=== PATIENT | male | born 1990 | race Caucasian/White ===

== ENCOUNTER 2019-06-05 14:20 | Emergency (ER) | payer OTHER, SELFPAY ==
[2019-06-05 14:27] VITALS: BP 141/86; PULSE 88; RESP 14; TEMP 37.1; O2SAT 95
--- NOTE | 2019-06-05 14:34 | ED_ITS ---
HPI - Skin/Abscess/Foreign Bdy General Chief complaint: Skin/Abscess/Foreign Body Stated complaint: tailbone injury Time Seen by Provider: 06/05/19 14:24 Source: patient Mode of arrival: Ambulatory Limitations: no limitations History of Present Illness HPI narrative: Patient is a 29-year-old male with what he thinks is either an abscess or cyst on his lower back/upper buttocks. He states has been there for the past couple days. It is painful. He stated that he had something similar many years ago but it seemed to resolved on its own. He states that last night he was taking a shower and it seemed to start draining on its own. He described getting 1/4 to 1/2 cup of material out of the area. He did do some research on the Internet and was concerned about either an abscess or cyst. Related Data Home Medications Medication Instructions Recorded Confirmed buprenorphine-naloxone 1 tab SUBLINGUAL DAILY 06/05/19 06/05/19 Allergies Allergy/AdvReac Type Severity Reaction Status Date / Time No Known Drug Allergies Allergy Verified 06/05/19 14:30 Review of Systems Constitutional Constitutional: Denies fever(s) and Denies headache(s) ENT Ears, Nose, Mouth, and Throat: Denies headache(s) Musculoskeletal Musculoskeletal: Denies myalgias and Denies arthralgias Integumentary/Breasts Comments: Sister abscess on lower back/upper buttock Neurologic Neurologic: Denies behavioral changes and Denies headache(s) Psychiatric Psychiatric: Denies behavioral changes Hematologic/Lymphatic Hematologic/Lymphatic: Denies easy bleeding and Denies easy bruising Patient History Medical History Internal hemorrhoid (Inactive) Subungual hematoma of finger of right hand (Inactive) Social History Smoking Status: Current every day smoker Smoking Status: Current every day smoker tobacco type: cigarettes alcohol intake frequency: 0-2 drinks per day Substance Use Type: does not use Exam Initial Vital Signs Initial Vital Signs: Vital Signs Temperature 98.7 F 06/05/19 14:27 Pulse Rate 88 06/05/19 14:27 Respiratory Rate 14 06/05/19 14:27 Blood Pressure 141/86 H 06/05/19 14:27 Pulse Oximetry 95 06/05/19 14:27 Const General: cooperative and comfortable Limitations: mental status not altered Resp Effort & Inspection: normal respiratory effort Cardio Rate: regular rate Skin Other: Patient with a 4 cm x 2 cm area of induration on the left upper area of the intergluteal fold posteriorly. There is a small tract at this area. No drainage of any material. Extrem General: normal to inspection and capillary refill normal Psych Appearance: grossly normal and well kempt Course Vital Signs Vital signs: Vital Signs - 8 hr 06/05/19 14:27 Temperature 98.7 F Pulse Rate 88 Respiratory Rate 14 Blood Pressure 141/86 H Pulse Oximetry 95 MDM - Skin/Abscess/Foreign Bdy MDM Narrative Medical decision making narrative: History and physical exam consistent with a pilonidal cyst. There is no drainage from the area currently. No surrounding erythema. No indication for antibiotics. Do not feel that he needs a incision and drainage patient was given phone numbers for the General surgery group here in [facility] to follow up with. He also contact his primary provider. He expressed understanding and agreement. Discharge Plan Departure Patient Disposition: Home Clinical Impression: Pilonidal cyst Discharge Date/Time: 06/05/19 14:47 Instructions: Pilonidal Cyst Activity Restrictions/Additional Instructions: Recommend you contact [facility] at [phone]. Also recommend you talk with your primary doctor just in case you need a referral. Return to the emergency department for any new or worsening symptoms. You can shower like normal. Prescriptions: No Action buprenorphine-naloxone 8-2 mg tablet, sublingual 1 tab SUBLINGUAL DAILY RF: 0 Referrals: Lissa Conti MD [Primary Care Provider] -
== END 2019-06-05 14:47 | disposition home or self-care (01) ==
PROVIDERS: Emergency Provider Emergency Medicine; PCP Internal Medicine
DX: L05.91 Pilonidal cyst without abscess (principal)
CPT/HCPCS: 99281

== ENCOUNTER → 2019-10-31 14:47 | Outpatient (CLI) | payer OTHER, SELFPAY ==
[2019-11-04 10:41] LABS: COVID19 Sendout Not Detected (Not Detected)
== END ==
PROVIDERS: PCP Internal Medicine; Visit Provider Physician Assistant
DX: R05 Cough (principal)
CPT/HCPCS: 87635